=== PATIENT | female | born 1960 | race African-American/Black ===

== ENCOUNTER 2019-02-17 17:40 | Emergency (ER) | payer SELFPAY ==
[~2019-02-17] VITALS: Ht 162.6 cm; Wt 63.6 kg
[~2019-02-17 17:40] MED LIST: CLON.2 PO; LOSA25TA41 PO
[2019-02-17] MEDS ORDERED: IBUPROFEN 800 MG TABLET PO ONE (18:30)
[2019-02-17] MEDS ORDERED: DIAZEPAM 5 MG TABLET PO ONE (19:45)
[2019-02-17 21:02] VITALS: BP 98/48
== END 2019-02-17 21:09 | disposition home or self-care (01) ==
LOC: EMS 17:41
DX: M19.90 Unspecified osteoarthritis, unspecified site (principal); I10 Essential (primary) hypertension; G43.909 Migraine, unspecified, not intractable, without status migrainosus; E03.9 Hypothyroidism, unspecified; Z88.8 Allergy status to other drugs, medicaments and biological substances
CPT/HCPCS: 73503